=== PATIENT | male | born 1965 | race Caucasian/White ===

== ENCOUNTER 2021-02-19 10:04 | Observation (INO) | payer OTHER ==
[~2021-02-19] VITALS: Ht 172.7 cm; Wt 126.8 kg
[2021-02-19] MEDS ORDERED: BACLOFEN10 MG PO (12:47)
[2021-02-19] MEDS ORDERED: NEURONTIN100 MG PO (12:47)
[2021-02-19] MEDS ORDERED: HYDROCHLOROTHIA25 MG PO (12:47)
[2021-02-19] MEDS ORDERED: HYDROXYZINE HCL25 MG PO (12:48)
[2021-02-19] MEDS ORDERED: SYNTHROID50 MCG PO (12:48)
[2021-02-19] MEDS ORDERED: HYDROCODON-ACE1 EAC6 PO (12:48)
[2021-02-19] MEDS ORDERED: LOPRESSOR 50 MG50 MG PO (12:49)
[2021-02-19] MEDS ORDERED: PRAZOSIN HCL2 MG PO (12:49)
[2021-02-19] MEDS ORDERED: GLUCOPHAGE500 MG PO (12:49)
[2021-02-19] MEDS ORDERED: IMITREX50 MG PO (12:50)
[2021-02-19] MEDS ORDERED: FLOMAX 0.4 MG0.4 MG PO (12:50)
[2021-02-19] MEDS ORDERED: TRAZODONE HCL150 MG PO (12:50)
[2021-02-19] MEDS ORDERED: ZETIA10 MG PO (12:51)
[2021-02-19] MEDS ORDERED: LIPITOR40 MG PO (12:51)
[2021-02-19] MEDS ORDERED: NITROSTAT0.4 MG SL (12:51)
[2021-02-19] MEDS ORDERED: DRISDOL1250 MCG PO (12:51)
[2021-02-19] MEDS ORDERED: WIXELA 250-501 EACH INH (12:52)
[2021-02-19] MEDS ORDERED: ROPINIROLE HCL0.5 MG PO (12:52)
[2021-02-19] MEDS ORDERED: BUTALB-ACETAMI1 EAC1 PO (12:53)
--- NOTE | 2021-02-19 16:00 | NUR ---
ENTERED PTS ROOM AND PTS STATED SHE HAD GAVE HIM SOME OF HIS OWN PAIN MEDICATIONS FROM HOME. I EXPLAINED THAT I HAD GOT HIS IV PAIN MEDICATION (DILAUDID) AND HAD IT WITH ME, BUT THAT IT WAS HOSPITAL POLICY FOR PT TO NOT TAKE HOME MEDS OR MEDS THAT WERE NOT ORDERED HERE. THE PT STARTED YELLING AT HIS TO SHUT UP AND KEEP HER MOUTH SHUT. I TOUCHED THE PTS ARM, HE IS [place], TO EXPLAIN AND SHOW HIM I HAD DILAUDID IN MY HAND, AND HE THEN SWUNG AT ME AND SCREAMED THAT I WAS TRYING TO TAKE HIS MEDS AND HE DID NOT WANT MY IV MEDS. DILAUDID WASTED PER HOSPITAL PROTOCOL. PT AND FAMILY SCREAMING AND ARGUEING, SECURITY CALLED TO DIFFUSE THE SITUATION. WILL CONTINUE TO MONITOR.
[2021-02-20 05:35] LABS: HEMOGLOBIN 14.7 gm/dl (14.0-17.5); RED BLOOD COUNT 4.61 M/UL (4.20-5.50); WHITE BLOOD COUNT 10.3 K/UL (4.5-11.0)
[2021-02-20 06:07] LABS: BUN/CREATININE RATIO 18 (0-10)
[2021-02-20] MEDS ORDERED: ASPIRIN EC81 MG PO (09:53)
[2021-02-20] MEDS ORDERED: LIPITOR40 MG PO (09:53)
[2021-02-20] MEDS ORDERED: CLOPIDOGREL75 MG PO (09:53)
--- NOTE | 2021-02-20 10:55 | NUR ---
PER MD ORDER PT AMBULATED IN ROOM PRIOR TO DISCHARGE. VITALS REMAINED STABLE. dISCHARGE INSTRUCTION GIVEN TO PATIENT AND FAMILY. PT AND FAMILY VERBALIZED UNDERSTANDING. INSTRUCTION GIVEN TO CALL MONDAY FOR FOLLOW-UP WITH CARDIOLOGY AND PRIMARY PHYSICIAN. IV REMOVED PRIOR TO TAKING THE PATIENT OUTSIDE VIA WHEELCHAIR. UPON DISCHARGE VITALS WERE STABLE.
== END 2021-02-20 10:45 | disposition home or self-care (01) ==
LOC: CCU 12:01
PROVIDERS: ADMIT Internal Medicine Interventional Cardiology
DX: I25.110 Atherosclerotic heart disease of native coronary artery with unstable angina pectoris (principal); I10 Essential (primary) hypertension; E78.5 Hyperlipidemia, unspecified; J44.9 Chronic obstructive pulmonary disease, unspecified; F17.210 Nicotine dependence, cigarettes, uncomplicated; E11.9 Type 2 diabetes mellitus without complications; E66.9 Obesity, unspecified; Z95.5 Presence of coronary angioplasty implant and graft; Z68.41 Body mass index [BMI] 40.0-44.9, adult; Z79.82 Long term (current) use of aspirin; Z79.899 Other long term (current) drug therapy
CPT/HCPCS: 36415; 80048; 80061; 85025; 85347; 93005; 96374; 96376; 99152; 99153; C1725; C1760; C1769; C1874; C1887; C9600; G0378; G0379; J0461; J0690; J1170; J1644; J2250; J3010; J7040; Q9965